=== PATIENT | male | born 1945 | race African-American/Black ===

== ENCOUNTER 2018-11-12 23:15 | Inpatient (IN) | payer OTHER ==
[~2018-11-12] VITALS: Ht 167.6 cm; Wt 96.6 kg
[2018-11-12] MEDS ORDERED: CAPTOPRIL 12.5MG TABLET PO ONE (23:30)
[2018-11-12] MEDS ORDERED: ASPIRIN 81MG TABLET PO ONE (23:30)
[2018-11-13] VITALS (9 sets, daily range): BP systolic 132–160; BP diastolic 77–96
[2018-11-13 00:17] LABS: CHLORIDE 106 mEq/L (98-107)
[2018-11-13 00:21] LABS: BASOPHILS % 1.1 % (0.0-2.0); EOSINOPHILS % 0.9 % (0.0-5.0); HEMATOCRIT. 31.7 % (42.0-52.0); HEMOGLOBIN. 9.9 g/dL (14.0-18.0); LYMPHOCYTES % 13.5 % (20.0-50.0); MEAN CORPUSCULAR HEMOGLOBIN 25.3 pg (28.0-32.0); MEAN PLATELET VOLUME 9.6 fl (7.4-10.4); MONOCYTES % 4.9 % (2.0-8.0); NEUTROPHILS % 79.6 % (40.0-76.0); PLATELET 195 x1000/uL (130-400); RED BLOOD CELL COUNT 3.92 mill/uL (4.7-6.1); RED CELL DISTRIBUTION WIDTH 18.6 % (11.6-14.6)
[2018-11-13] MEDS ORDERED: INSULIN REGULAR (HUMULIN R) UD 100 UNITS/ML SYR IV ONE (01:30)
[2018-11-13] MEDS ORDERED: INSULIN REGULAR (HUMULIN R) 300UNITS/3ML IV NR (02:30)
[2018-11-13] MEDS ORDERED: MORPHINE SULFATE 4 MG/ML CPJ (NOT FOR IM USE) IV ONE (04:30)
[2018-11-13 08:09] LABS: T4 FREE 1.02 ng/dL (0.76-1.46)
[2018-11-13] MEDS ORDERED: ENOXAPARIN 40MG/0.4ML SYR SUBCUT SCH (09:00)
[2018-11-13] MEDS ORDERED: FUROSEMIDE 40MG/4ML VIAL IVP SCH (09:30)
[2018-11-13] MEDS ORDERED: DEXTROSE 50% WATER 50ML SYRINGE IV PRN (10:15)
[2018-11-13] MEDS: FUROSEMIDE 40MG/4ML VIAL IVP SCH (10:41)
[2018-11-13 11:07] LABS: BG BASE EXCESS -0.9 mmol/L (-2.0-2.0); BG BILEVEL POS AIRWAY PRESSURE ST=15/5; BG CARBOXYHEMOGLOBIN 0.7 % (0.5-1.5); BG DEOXYHEMOGLOBIN 1.6 % (0.0-5.0); BG FRACTION INSPIRED OXYGEN 50; BG HCO3 ACT 25.7 mmol/L (22.0-26.0); BG METHEMOGLOBIN 0.1 % (0.0-1.5); BG OXYGEN SATURATION 98.4 % (92.0-98.5); BG OXYHEMOGLOBIN 97.6 % (94.0-97.0); BG PCO2 52.4 mmHg (35.0-45.0); BG PH 7.309 (7.350-7.450); BG PO2 124.7 mmHg (75.0-100.0); BG PRESSURE SUPPORT 10; BG SAMPLE SITE RIGHT RADIAL; BG TOTAL HEMOGLOBIN 10.3 g/dL (12.0-18.0); BG VENT MODE MASK - BIPAP; BG VENT RATE 16 set
[2018-11-13] MEDS: BLOOD SUGAR DIAGNOSTIC STRIP TEST SCH ×3 (12:30→21:00)
[2018-11-13 12:58] LABS: BASOPHILS % 1.2 % (0.0-2.0); HEMATOCRIT. 32.7 % (42.0-52.0); HEMOGLOBIN. 9.9 g/dL (14.0-18.0); LYMPHOCYTES % 25.3 % (20.0-50.0); MEAN CORPUSCULAR HEMOGLOBIN 24.8 pg (28.0-32.0); MEAN CORPUSCULAR VOLUME 81.9 fL (80.0-94.0); MEAN PLATELET VOLUME 9.9 fl (7.4-10.4); NEUTROPHILS % 63.5 % (40.0-76.0); PLATELET 170 x1000/uL (130-400)
[2018-11-13 13:03] LABS: PHOSPHORUS 4.8 mg/dL (2.5-4.9)
[2018-11-13] MEDS ORDERED: ALBUTEROL (0.5%) 2.5MG/0.5ML NEB HHN PRN (13:45)
[2018-11-13] MEDS ORDERED: IPRATROPIUM/ALBUTEROL 0.5-3(2.5)MG/3ML NEB HHN PRN (14:00)
[2018-11-13] MEDS: INSULIN LISPRO 100 UNITS/ML SUBCUT SCH ×3 (14:18→21:24)
[2018-11-13 15:07] LABS: CREATINE KINASE MB FRACTION 20.1 ng/mL (0.5-3.6)
[2018-11-13 16:38] LABS: CLARITY URINE CLEAR (CLEAR); COLOR URINE YELLOW (YELLOW); KETONES URINE NEGATIVE (NEGATIVE); LEUKOCYTE ESTERASE URINE 1+ (NEGATIVE); NITRITE URINE NEGATIVE (NEGATIVE); OCCULT BLOOD URINE NEGATIVE (NEGATIVE); PROTEIN URINE 2+ (NEGATIVE); SPECIFIC GRAVITY URINE 1.015 (1.005-1.030); UROBILINOGEN URINE 0.2 E.U./dL (0.2-1.0)
[2018-11-13] MEDS: IPRATROPIUM/ALBUTEROL 0.5-3(2.5)MG/3ML NEB HHN SCH ×2 (17:17→20:22)
[2018-11-13] MEDS: METHYLPREDNISOLONE SOD SUCC 40 MG/ML VIAL IV SCH ×2 (17:18→21:12)
[2018-11-13] MEDS: THEOPHYLLINE ANHYDROUS 80 MG/15 ML 120ML PO SCH ×2 (17:27→21:12)
[2018-11-13] MEDS ORDERED: ENOXAPARIN 60MG/0.6ML SYR SUBCUT NR (20:30)
[2018-11-13] MEDS ORDERED: FURO-152 PO (20:38)
[2018-11-13] MEDS ORDERED: HYDR25TA MT (20:38)
[2018-11-13] MEDS ORDERED: AMYLASE PO (20:38)
[2018-11-13] MEDS ORDERED: ASPI-1158 PO (20:38)
[2018-11-13] MEDS ORDERED: [UNRECOGNIZED DRUG - OTHER] PO (20:38)
[2018-11-13] MEDS ORDERED: HYDR-4001 MT (20:38)
[2018-11-13] MEDS ORDERED: SIMV20TA2 MT (20:38)
[2018-11-13] MEDS ORDERED: ISOS10TA53 MT (20:38)
[2018-11-13] MEDS ORDERED: [UNRECOGNIZED DRUG - OTHER] PO (20:38)
[2018-11-13] MEDS ORDERED: TRAM50TA3 PO (20:38)
[2018-11-13] MEDS: CLOPIDOGREL 75MG TABLET PO SCH (21:29)
[2018-11-13 23:10] LABS: CREATINE KINASE MB FRACTION 12.7 ng/mL (0.5-3.6)
[2018-11-14] VITALS (56 sets, daily range): BP systolic 128–186; BP diastolic 37–151
[2018-11-14] MEDS: THEOPHYLLINE ANHYDROUS 80 MG/15 ML 120ML PO SCH (06:03)
[2018-11-14] MEDS: METHYLPREDNISOLONE SOD SUCC 40 MG/ML VIAL IV SCH ×3 (06:03→21:31)
[2018-11-14] MEDS: IPRATROPIUM/ALBUTEROL 0.5-3(2.5)MG/3ML NEB HHN SCH ×3 (08:11→20:38)
[2018-11-14] MEDS: BLOOD SUGAR DIAGNOSTIC STRIP TEST SCH ×4 (08:21→21:27)
[2018-11-14] MEDS: FUROSEMIDE 40MG/4ML VIAL IVP SCH ×3 (08:52→17:05)
[2018-11-14] MEDS: CLOPIDOGREL 75MG TABLET PO SCH (08:53)
[2018-11-14] MEDS: HYDROCODONE/ACETAMINOPHEN 5/325MG TABLET PO PRN (08:56)
[2018-11-14] MEDS ORDERED: ENOXAPARIN 100MG/ML SYR SUBCUT SCH (09:00)
[2018-11-14 09:04] LABS: BG BASE EXCESS -1.4 mmol/L (-2.0-2.0); BG BILEVEL POS AIRWAY PRESSURE 15/5; BG CARBOXYHEMOGLOBIN 0.7 % (0.5-1.5); BG DEOXYHEMOGLOBIN 7.3 % (0.0-5.0); BG FRACTION INSPIRED OXYGEN 45; BG HCO3 ACT 23.5 mmol/L (22.0-26.0); BG METHEMOGLOBIN 0.1 % (0.0-1.5); BG OXYGEN SATURATION 92.6 % (92.0-98.5); BG OXYHEMOGLOBIN 91.9 % (94.0-97.0); BG PCO2 40.5 mmHg (35.0-45.0); BG PH 7.382 (7.350-7.450); BG PO2 68.1 mmHg (75.0-100.0); BG SAMPLE SITE RIGHT BRACHIAL; BG TOTAL HEMOGLOBIN 10.9 g/dL (12.0-18.0); BG VENT MODE MASK - BIPAP; BG VENT RATE 20 set
[2018-11-14] MEDS: INSULIN LISPRO 100 UNITS/ML SUBCUT SCH ×4 (09:07→21:31)
[2018-11-14 10:08] LABS: CREATINE KINASE MB FRACTION 6.9 ng/mL (0.5-3.6)
[2018-11-14 10:10] LABS: BASOPHILS % 0.1 % (0.0-2.0); HEMATOCRIT. 32.2 % (42.0-52.0); LYMPHOCYTES % 22.9 % (20.0-50.0); MEAN CORPUSCULAR HEMOGLOBIN 25.4 pg (28.0-32.0); MEAN CORPUSCULAR VOLUME 81.3 fL (80.0-94.0); MEAN PLATELET VOLUME 10.1 fl (7.4-10.4); MONOCYTES % 2.1 % (2.0-8.0); NEUTROPHILS % 74.9 % (40.0-76.0); PLATELET 192 x1000/uL (130-400); RED BLOOD CELL COUNT 3.96 mill/uL (4.7-6.1); RED CELL DISTRIBUTION WIDTH 18.5 % (11.6-14.6)
[2018-11-14] MEDS: NITROGLYCERIN 50MG PREMIX 250 ML IV PRN ×3 (10:41→22:32)
[2018-11-14] MEDS: ASPIRIN 81MG TABLET PO SCH (11:31)
[2018-11-14] MEDS ORDERED: ENOXAPARIN 60MG/0.6ML SYR SUBCUT SCH (12:00)
[2018-11-14] MEDS: ENOXAPARIN 100MG/ML SYR SUBCUT SCH (12:41)
[2018-11-14] MEDS: METOPROLOL TARTRATE 25MG TABLET PO SCH ×2 (12:42→21:31)
[2018-11-14 13:27] LABS: CLARITY URINE CLEAR (CLEAR); COLOR URINE YELLOW (YELLOW); KETONES URINE NEGATIVE (NEGATIVE); LEUKOCYTE ESTERASE URINE TRACE (NEGATIVE); NITRITE URINE NEGATIVE (NEGATIVE); OCCULT BLOOD URINE NEGATIVE (NEGATIVE); PROTEIN URINE 2+ (NEGATIVE); SPECIFIC GRAVITY URINE 1.012 (1.005-1.030); UROBILINOGEN URINE 0.2 E.U./dL (0.2-1.0)
[2018-11-14 13:43] LABS: *AMPHETAMINES SCREEN URINE NEGATIVE (NEGATIVE); *BARBITURATES SCREEN URINE NEGATIVE (NEGATIVE); *BENZODIAZEPINES SCREEN URINE NEGATIVE (NEGATIVE); *COCAINE SCREEN URINE NEGATIVE (NEGATIVE)
[2018-11-14 13:44] LABS: CANNABINOID URINE SCREEN NEGATIVE (NEGATIVE); METHADONE URINE SCREEN NEGATIVE (NEGATIVE); OPIATES URINE SCREEN PRESUMTIVE POSITIVE (NEGATIVE); PHENCYCLIDINE URINE SCREEN NEGATIVE (NEGATIVE)
[2018-11-14] MEDS: MORPHINE SULFATE 2 MG/ML CPJ (NOT FOR IM USE) IV PRN (20:51)
[2018-11-15] VITALS (56 sets, daily range): BP systolic 113–174; BP diastolic 58–98
[2018-11-15] MEDS: NITROGLYCERIN 50MG PREMIX 250 ML IV PRN ×2 (02:17→23:56)
[2018-11-15] MEDS: METHYLPREDNISOLONE SOD SUCC 40 MG/ML VIAL IV SCH ×3 (05:23→21:37)
[2018-11-15 07:22] LABS: BASOPHILS % 0.1 % (0.0-2.0); HEMOGLOBIN. 8.1 g/dL (14.0-18.0); LYMPHOCYTES % 16.2 % (20.0-50.0); MEAN CORPUSCULAR HEMOGLOBIN 25.5 pg (28.0-32.0); MEAN CORPUSCULAR VOLUME 81.9 fL (80.0-94.0); MEAN PLATELET VOLUME 10.5 fl (7.4-10.4); MONOCYTES % 4.1 % (2.0-8.0); NEUTROPHILS % 79.6 % (40.0-76.0); PLATELET 165 x1000/uL (130-400); RED BLOOD CELL COUNT 3.18 mill/uL (4.7-6.1); RED CELL DISTRIBUTION WIDTH 18.7 % (11.6-14.6)
[2018-11-15] MEDS: BLOOD SUGAR DIAGNOSTIC STRIP TEST SCH ×4 (07:52→21:28)
[2018-11-15] MEDS: INSULIN LISPRO 100 UNITS/ML SUBCUT SCH ×4 (08:37→21:38)
[2018-11-15] MEDS: METOPROLOL TARTRATE 25MG TABLET PO SCH ×2 (08:38→21:37)
[2018-11-15] MEDS: ASPIRIN 81MG TABLET PO SCH (08:38)
[2018-11-15] MEDS: CLOPIDOGREL 75MG TABLET PO SCH (08:38)
[2018-11-15] MEDS: ENOXAPARIN 100MG/ML SYR SUBCUT SCH (08:38)
[2018-11-15] MEDS: FUROSEMIDE 40MG/4ML VIAL IVP SCH ×3 (08:39→17:00)
[2018-11-15 08:57] LABS: BG BASE EXCESS -0.4 mmol/L (-2.0-2.0); BG CARBOXYHEMOGLOBIN 0.4 % (0.5-1.5); BG DEOXYHEMOGLOBIN 4.9 % (0.0-5.0); BG HCO3 ACT 24.7 mmol/L (22.0-26.0); BG METHEMOGLOBIN 0.2 % (0.0-1.5); BG OXYGEN SATURATION 95.1 % (92.0-98.5); BG OXYHEMOGLOBIN 94.5 % (94.0-97.0); BG PCO2 42.7 mmHg (35.0-45.0); BG PH 7.381 (7.350-7.450); BG SAMPLE SITE RIGHT RADIAL; BG TOTAL HEMOGLOBIN 10.1 g/dL (12.0-18.0); BG VENT MODE NASAL CANNULA
[2018-11-15] MEDS: IPRATROPIUM/ALBUTEROL 0.5-3(2.5)MG/3ML NEB HHN SCH ×4 (09:00→20:10)
[2018-11-15 10:11] LABS: MICROALBUMIN RANDOM URINE 978.2 ug/mL (Not Estab.)
[2018-11-15] MEDS ORDERED: DEXTROSE 50% WATER 50ML SYRINGE IV PRN (10:30)
[2018-11-15] MEDS ORDERED: INSULIN GLARGINE UD 100 UNITS/ML SYR SUBCUT NR (11:30)
[2018-11-15] MEDS ORDERED: CARVEDILOL 3.125 MG TABLET PO SCH (21:00)
[2018-11-15] MEDS: HYDROCODONE/ACETAMINOPHEN 5/325MG TABLET PO PRN (21:35)
[2018-11-15] MEDS: INSULIN GLARGINE UD 100 UNITS/ML SYR SUBCUT SCH (21:38)
[2018-11-15] MEDS ORDERED: INSULIN GLARGINE UD 100 UNITS/ML SYR SUBCUT SCH ×2 (22:00)
[2018-11-16] VITALS (88 sets, daily range): BP systolic 93–167; BP diastolic 51–101
[2018-11-16] MEDS: ACETAMINOPHEN 325MG TABLET PO PRN ×2 (04:37→13:52)
[2018-11-16] MEDS ORDERED: ONDANSETRON HCL 4MG/2ML INJ IV PRN (06:00)
[2018-11-16] MEDS: NITROGLYCERIN 50MG PREMIX 250 ML IV PRN ×3 (06:49→20:52)
[2018-11-16] MEDS: METHYLPREDNISOLONE SOD SUCC 40 MG/ML VIAL IV SCH (08:01)
[2018-11-16] MEDS: METOPROLOL TARTRATE 25MG TABLET PO SCH ×2 (08:02→20:41)
[2018-11-16] MEDS: FUROSEMIDE 40MG/4ML VIAL IVP SCH ×3 (08:02→17:27)
[2018-11-16] MEDS: CLOPIDOGREL 75MG TABLET PO SCH (08:02)
[2018-11-16] MEDS: ASPIRIN 81MG TABLET PO SCH (08:02)
[2018-11-16] MEDS: ENOXAPARIN 100MG/ML SYR SUBCUT SCH (08:03)
[2018-11-16] MEDS: BLOOD SUGAR DIAGNOSTIC STRIP TEST SCH ×4 (08:26→20:42)
[2018-11-16] MEDS: INSULIN LISPRO 100 UNITS/ML SUBCUT SCH ×4 (08:30→20:42)
[2018-11-16] MEDS: IPRATROPIUM/ALBUTEROL 0.5-3(2.5)MG/3ML NEB HHN SCH ×4 (08:35→22:16)
[2018-11-16 09:00] LABS: HEMATOCRIT. 29.3 % (42.0-52.0); HEMOGLOBIN. 9.2 g/dL (14.0-18.0); LYMPHOCYTES % 15.9 % (20.0-50.0); MEAN CORPUSCULAR HEMOGLOBIN 25.1 pg (28.0-32.0); MEAN CORPUSCULAR VOLUME 80.3 fL (80.0-94.0); MEAN PLATELET VOLUME 9.7 fl (7.4-10.4); MONOCYTES % 5.3 % (2.0-8.0); NEUTROPHILS % 78.8 % (40.0-76.0); PLATELET 172 x1000/uL (130-400); RED BLOOD CELL COUNT 3.65 mill/uL (4.7-6.1); RED CELL DISTRIBUTION WIDTH 18.8 % (11.6-14.6)
[2018-11-16] MEDS ORDERED: SODIUM POLYSTYRENE SULFONATE 15 G/60 ML BOT PO SCH (12:00)
[2018-11-16] MEDS ORDERED: INSULIN LISPRO 100 UNITS/ML SUBCUT NR (12:30)
[2018-11-16] MEDS ORDERED: METOCLOPRAMIDE HCL 5MG TABLET PO PRN (13:15)
[2018-11-16] MEDS: AMLODIPINE 5MG TABLET PO SCH ×2 (13:47→20:41)
[2018-11-16] MEDS: MORPHINE SULFATE 2 MG/ML CPJ (NOT FOR IM USE) IV PRN (15:56)
[2018-11-16] MEDS: HYDROCODONE/ACETAMINOPHEN 5/325MG TABLET PO PRN (20:03)
[2018-11-16] MEDS: INSULIN GLARGINE UD 100 UNITS/ML SYR SUBCUT SCH (22:34)
[2018-11-17] MEDS ORDERED: PREDNISONE 20MG TABLET PO SCH (08:20)
== END 2018-11-16 23:15 | disposition short-term general hospital (02) | DRG 280 ==
LOC: ER 23:15 → EDBEDREQ 11-13 01:13 → EDBEDREQTM 11-13 01:13 → ENRESERV 11-13 04:08 → CANRESERV 11-13 04:08 → 5EST 11-13 04:29 → EDBEDREQSVC 11-13 04:34 → ENRESERV 11-13 07:16 → CVICU 11-14 10:00
PROVIDERS: ADMIT Family Medicine; ATTEND Family Medicine
PROC: 5A09457 Assistance with Respiratory Ventilation, 24-96 Consecutive Hours, Continuous Positive Airway Pressure (ICD-10-PCS; 2018-11-12)
PROC: 02HV33Z Insertion of Infusion Device into Superior Vena Cava, Percutaneous Approach (ICD-10-PCS; principal; 2018-11-14)
PROC: B548ZZA Ultrasonography of Superior Vena Cava, Guidance (ICD-10-PCS; 2018-11-14)
DX: I21.4 Non-ST elevation (NSTEMI) myocardial infarction (principal); J96.01 Acute respiratory failure with hypoxia; I50.43 Acute on chronic combined systolic (congestive) and diastolic (congestive) heart failure; N17.9 Acute kidney failure, unspecified; N18.4 Chronic kidney disease, stage 4 (severe); I13.0 Hypertensive heart and chronic kidney disease with heart failure and stage 1 through stage 4 chronic kidney disease, or unspecified chronic kidney disease; E46 Unspecified protein-calorie malnutrition; E87.2 Acidosis; I42.9 Cardiomyopathy, unspecified; J44.1 Chronic obstructive pulmonary disease with (acute) exacerbation; D64.9 Anemia, unspecified; R74.0 Nonspecific elevation of levels of transaminase and lactic acid dehydrogenase [LDH]; F17.210 Nicotine dependence, cigarettes, uncomplicated; Z96.652 Presence of left artificial knee joint; E11.22 Type 2 diabetes mellitus with diabetic chronic kidney disease; E66.01 Morbid (severe) obesity due to excess calories; I27.29 Other secondary pulmonary hypertension; E11.65 Type 2 diabetes mellitus with hyperglycemia; Z79.899 Other long term (current) drug therapy; Z79.82 Long term (current) use of aspirin; Z68.34 Body mass index [BMI] 34.0-34.9, adult
CPT/HCPCS: 36415; 36569; 36600; 71045; 76700; 76937; 78580; 80048; 80061; 80305; 82043; 82375; 82550; 82553; 82570; 82805; 82962; 83036; 83880; 84100; 84132; 84300; 84439; 84443; 84484; 85379; 93005; 93306; 93970; 94640; 94660; 96372; 96374; 96375; 99291; C1725; C1769; C1893; J1650; J1815; J1940; J2270; J2405; J2920; J3490; J7040; J7620

== ENCOUNTER 2019-01-30 03:16 | Inpatient (IN) | payer OTHER ==
[~2019-01-30] VITALS: Ht 165.1 cm; Wt 94.0 kg
[2019-01-30] VITALS (65 sets, daily range): BP systolic 107–183; BP diastolic 60–125
[~2019-01-30 03:16] MED LIST: AMYLASE PO; ASPI-1158 PO; FURO-152 PO; HYDR-4001 MT; HYDR25TA MT; ISOS10TA53 MT; SIMV20TA2 MT; TRAM50TA3 PO; [UNRECOGNIZED DRUG - OTHER] PO; [UNRECOGNIZED DRUG - OTHER] PO
[2019-01-30] MEDS ORDERED: ONDANSETRON HCL 4MG/2ML INJ IV STA (03:20)
[2019-01-30] MEDS ORDERED: FUROSEMIDE 40MG/4ML VIAL IV ONE (03:30)
[2019-01-30] MEDS ORDERED: NITROGLYCERIN 50MG PREMIX 250 ML IV ONE (03:36)
[2019-01-30 03:41] LABS: BG BASE EXCESS -5.4 mmol/L (-2.0-2.0); BG BILEVEL POS AIRWAY PRESSURE 18/5; BG CARBOXYHEMOGLOBIN 0.5 % (0.5-1.5); BG DEOXYHEMOGLOBIN 2.2 % (0.0-5.0); BG FRACTION INSPIRED OXYGEN 60; BG METHEMOGLOBIN 0.4 % (0.0-1.5); BG OXYGEN SATURATION 97.8 % (92.0-98.5); BG OXYHEMOGLOBIN 96.9 % (94.0-97.0); BG PH 7.245 (7.350-7.450); BG PO2 123.8 mmHg (75.0-100.0); BG SAMPLE SITE LEFT RADIAL; BG TOTAL HEMOGLOBIN 10.5 g/dL (12.0-18.0); BG VENT MODE MASK - BIPAP; BG VENT RATE 16 set
[2019-01-30 03:49] LABS: BASOPHILS % 0.8 % (0.0-2.0); EOSINOPHILS % 1.1 % (0.0-5.0); HEMATOCRIT. 30.8 % (42.0-52.0); HEMOGLOBIN. 9.2 g/dL (14.0-18.0); LYMPHOCYTES % 20.3 % (20.0-50.0); MEAN CORPUSCULAR HEMOGLOBIN 24.9 pg (28.0-32.0); MEAN CORPUSCULAR VOLUME 83.3 fL (80.0-94.0); MEAN PLATELET VOLUME 8.2 fl (7.4-10.4); MONOCYTES % 5.4 % (2.0-8.0); NEUTROPHILS % 72.4 % (40.0-76.0); PLATELET 271 x1000/uL (130-400); RED CELL DISTRIBUTION WIDTH 22.2 % (11.6-14.6)
[2019-01-30 03:55] LABS: CHLORIDE 106 mEq/L (98-107)
[2019-01-30] MEDS ORDERED: ACETAMINOPHEN 325MG TABLET PO PRN (08:45)
[2019-01-30] MEDS ORDERED: ONDANSETRON HCL 4MG/2ML INJ IV PRN (08:45)
[2019-01-30] MEDS ORDERED: HYDRALAZINE 20MG/ML VIAL IV NR (08:45)
[2019-01-30] MEDS: BLOOD SUGAR DIAGNOSTIC STRIP TEST SCH ×4 (08:55→21:58)
[2019-01-30] MEDS ORDERED: FUROSEMIDE 40MG/4ML VIAL IVP SCH (09:00)
[2019-01-30] MEDS ORDERED: CARVEDILOL 12.5MG TABLET PO SCH (09:00)
[2019-01-30] MEDS ORDERED: IPRATROPIUM/ALBUTEROL 0.5-3(2.5)MG/3ML NEB HHN PRN (10:30)
[2019-01-30] MEDS: INSULIN LISPRO 100 UNITS/ML SUBCUT SCH ×6 (10:59→21:00)
[2019-01-30] MEDS: FAMOTIDINE 20MG/2ML VIAL IV SCH (11:25)
[2019-01-30] MEDS: INSULIN GLARGINE UD 100 UNITS/ML SYR SUBCUT SCH ×2 (11:26→21:58)
[2019-01-30 11:30] LABS: BG BILEVEL POS AIRWAY PRESSURE 18/5; BG CARBOXYHEMOGLOBIN 0.4 % (0.5-1.5); BG DEOXYHEMOGLOBIN 1.3 % (0.0-5.0); BG FRACTION INSPIRED OXYGEN 60; BG HCO3 ACT 26.4 mmol/L (22.0-26.0); BG METHEMOGLOBIN 0.2 % (0.0-1.5); BG OXYGEN SATURATION 98.7 % (92.0-98.5); BG OXYHEMOGLOBIN 98.1 % (94.0-97.0); BG PCO2 52.2 mmHg (35.0-45.0); BG PH 7.322 (7.350-7.450); BG PO2 129.8 mmHg (75.0-100.0); BG SAMPLE SITE RIGHT RADIAL; BG TOTAL HEMOGLOBIN 8.8 g/dL (12.0-18.0); BG VENT MODE MASK - BIPAP; BG VENT RATE 16 set
[2019-01-30] MEDS: ENOXAPARIN 40MG/0.4ML SYR SUBCUT SCH (11:34)
[2019-01-30 11:40] LABS: PHOSPHORUS 3.8 mg/dL (2.5-4.9)
[2019-01-30 11:41] LABS: T4 FREE 1.21 ng/dL (0.76-1.46)
[2019-01-30 11:42] LABS: BETA HYDROXYBUTYRATE 0.1 mMol/L (0.0-0.3)
[2019-01-30] MEDS: LOSARTAN POTASSIUM 100 MG TABLET PO SCH (13:29)
[2019-01-30] MEDS: AMLODIPINE 5MG TABLET PO SCH ×2 (13:30→22:07)
[2019-01-30] MEDS: METOPROLOL TARTRATE 50MG TABLET PO SCH ×2 (14:32→22:08)
[2019-01-30] MEDS: HYDRALAZINE HCL 25MG TABLET PO SCH ×2 (15:18→22:59)
[2019-01-30] MEDS: IPRATROPIUM BROMIDE (0.02%) 0.5MG/2.5ML NEB HHN SCH ×2 (16:43→20:23)
[2019-01-30] MEDS: FUROSEMIDE 40MG/4ML VIAL IVP SCH (17:17)
[2019-01-30] MEDS: DEXTROSE 50% WATER 50ML SYRINGE IV PRN ×3 (18:22→20:36)
[2019-01-30 20:54] LABS: CLARITY URINE CLEAR (CLEAR); COLOR URINE YELLOW (YELLOW); KETONES URINE NEGATIVE (NEGATIVE); LEUKOCYTE ESTERASE URINE 1+ (NEGATIVE); NITRITE URINE NEGATIVE (NEGATIVE); OCCULT BLOOD URINE NEGATIVE (NEGATIVE); PROTEIN URINE 2+ (NEGATIVE); SPECIFIC GRAVITY URINE 1.008 (1.005-1.030); UROBILINOGEN URINE 0.2 E.U./dL (0.2-1.0)
[2019-01-30 21:25] LABS: CREATINE KINASE MB FRACTION 1.9 ng/mL (0.5-3.6)
[2019-01-30 23:03] LABS: CREATINE KINASE MB FRACTION 1.8 ng/mL (0.5-3.6)
[2019-01-31] VITALS (38 sets, daily range): BP systolic 105–158; BP diastolic 62–89
[2019-01-31] MEDS: IPRATROPIUM BROMIDE (0.02%) 0.5MG/2.5ML NEB HHN SCH ×5 (01:00→15:22)
[2019-01-31 05:42] LABS: BASOPHILS % 1.1 % (0.0-2.0); EOSINOPHILS % 1.3 % (0.0-5.0); HEMATOCRIT. 31.6 % (42.0-52.0); HEMOGLOBIN. 9.8 g/dL (14.0-18.0); MEAN CORPUSCULAR HEMOGLOBIN 25.1 pg (28.0-32.0); MEAN CORPUSCULAR VOLUME 80.9 fL (80.0-94.0); MEAN PLATELET VOLUME 8.3 fl (7.4-10.4); MONOCYTES % 7.7 % (2.0-8.0); NEUTROPHILS % 66.9 % (40.0-76.0); PLATELET 261 x1000/uL (130-400); RED BLOOD CELL COUNT 3.91 mill/uL (4.7-6.1); RED CELL DISTRIBUTION WIDTH 21.7 % (11.6-14.6)
[2019-01-31] MEDS: HYDRALAZINE HCL 25MG TABLET PO SCH ×2 (05:51→13:06)
[2019-01-31 05:58] LABS: PHOSPHORUS 3.5 mg/dL (2.5-4.9)
[2019-01-31 06:03] LABS: CREATINE KINASE MB FRACTION 1.3 ng/mL (0.5-3.6)
[2019-01-31] MEDS: INSULIN LISPRO 100 UNITS/ML SUBCUT SCH ×4 (07:50→18:27)
[2019-01-31] MEDS: BLOOD SUGAR DIAGNOSTIC STRIP TEST SCH ×3 (08:23→18:07)
[2019-01-31] MEDS: LOSARTAN POTASSIUM 100 MG TABLET PO SCH (08:45)
[2019-01-31] MEDS: ENOXAPARIN 40MG/0.4ML SYR SUBCUT SCH (08:45)
[2019-01-31] MEDS: AMLODIPINE 5MG TABLET PO SCH (08:46)
[2019-01-31] MEDS: METOPROLOL TARTRATE 50MG TABLET PO SCH (08:46)
[2019-01-31] MEDS: FAMOTIDINE 20MG/2ML VIAL IV SCH (08:48)
[2019-01-31] MEDS: FUROSEMIDE 40MG/4ML VIAL IVP SCH ×2 (08:48→16:56)
[2019-01-31] MEDS: INSULIN GLARGINE UD 100 UNITS/ML SYR SUBCUT SCH (10:00)
[2019-01-31] MEDS ORDERED: INSULIN GLARGINE UD 100 UNITS/ML SYR SUBCUT NR (11:00)
[2019-01-31] MEDS ORDERED: METOPROLOL TARTRATE 25MG TABLET PO SCH (21:00)
[2019-01-31] MEDS ORDERED: EPOETIN ALFA 4000UNITS/ML VIAL SUBCUT NR (21:00)
[2019-01-31] MEDS ORDERED: INSULIN GLARGINE UD 100 UNITS/ML SYR SUBCUT SCH (22:00)
== END 2019-01-31 19:45 | disposition short-term general hospital (02) | DRG 291 ==
LOC: ER 03:16 → EDBEDREQSVC 05:08 → EDBEDREQ 05:08 → EDBEDREQTM 05:08 → ENRESERV 05:21 → CVICU 06:50
PROVIDERS: ADMIT Internal Medicine; ATTEND Internal Medicine
PROC: 5A09457 Assistance with Respiratory Ventilation, 24-96 Consecutive Hours, Continuous Positive Airway Pressure (ICD-10-PCS; principal; 2019-01-30)
DX: I13.0 Hypertensive heart and chronic kidney disease with heart failure and stage 1 through stage 4 chronic kidney disease, or unspecified chronic kidney disease (principal); G92 Toxic encephalopathy; I50.23 Acute on chronic systolic (congestive) heart failure; J96.22 Acute and chronic respiratory failure with hypercapnia; J96.21 Acute and chronic respiratory failure with hypoxia; E44.1 Mild protein-calorie malnutrition; E87.2 Acidosis; N17.9 Acute kidney failure, unspecified; I42.9 Cardiomyopathy, unspecified; E66.9 Obesity, unspecified; F17.210 Nicotine dependence, cigarettes, uncomplicated; E11.65 Type 2 diabetes mellitus with hyperglycemia; E11.22 Type 2 diabetes mellitus with diabetic chronic kidney disease; D64.9 Anemia, unspecified; I25.10 Atherosclerotic heart disease of native coronary artery without angina pectoris; I34.0 Nonrheumatic mitral (valve) insufficiency; J44.9 Chronic obstructive pulmonary disease, unspecified; N18.3 Chronic kidney disease, stage 3 (moderate); I16.0 Hypertensive urgency; Z82.49 Family history of ischemic heart disease and other diseases of the circulatory system; Z95.1 Presence of aortocoronary bypass graft; Z83.3 Family history of diabetes mellitus; Z68.34 Body mass index [BMI] 34.0-34.9, adult; Z79.82 Long term (current) use of aspirin; Z79.899 Other long term (current) drug therapy; Z71.3 Dietary counseling and surveillance
CPT/HCPCS: 36415; 36600; 71045; 76770; 80048; 80061; 82010; 82140; 82375; 82550; 82553; 82805; 82962; 83036; 83605; 83735; 83880; 84100; 84145; 84439; 84443; 84484; 85379; 93005; 93306; 93970; 94640; 94660; 96374; 99285; J0360; J0885; J1650; J1815; J1940; J2405; J3490